=== PATIENT | female | born 1940 | race Caucasian/White ===

== ENCOUNTER → 2018-08-15 | Outpatient (CLI) | payer MEDICARE, OTHER ==
--- NOTE | 2018-08-15 16:24 | RADIOLOGY REPORT (SQ) ---
EXAM DESCRIPTION: VENOUS BILATERAL LOWER COMPLETED DATE/TIME: 08/15/2018 4:14 pm REASON FOR STUDY: EDEMA R60.9 EDEMA, UNSPECIFIED M79.604 PAIN IN RIGHT LEG COMPARISON: None. TECHNIQUE: Dynamic and static tony scale and color images acquired of both lower extremity venous sy stems. Selected spectral images acquired with additional compression and augmentation maneuvers. Imag es stored on PACS. LIMITATIONS: None. FINDINGS: RIGHT LEG COMMON FEMORAL AND FEMORAL: Normal phasicity, compression and augmentation. No visualized echogenic m aterial on tony scale. No defects on color images. POPLITEAL: Normal compression and augmentation. No visualized echogenic material on tony scale. No de fects on color images. CALF VESSELS: Normal compression and augmentation. No visualized echogenic material on tony scale. No defects on color image. GSV AND SSV: Normal compression. No visualized echogenic material on tony scale. No defects on color images. ANY DEEP VENOUS INSUFFICIENCY: No reflux on Valsalva ANY EVIDENCE OF POPLITEAL CYST: No. OTHER: No other significant finding. LEFT LEG COMMON FEMORAL AND FEMORAL: Normal phasicity, compression and augmentation. No visualized echogenic m aterial on tony scale. No defects on color images. POPLITEAL: Normal compression and augmentation. No visualized echogenic material on tony scale. No de fects on color images. CALF VESSELS: Normal compression and augmentation. No visualized echogenic material on tony scale. No defects on color images. GSV AND SSV: Normal compression. No visualized echogenic material on tony scale. No defects on color images. ANY DEEP VENOUS INSUFFICIENCY: No reflux on Valsalva. ANY EVIDENCE POPLITEAL CYST: No. OTHER: No other significant finding. IMPRESSION: NO EVIDENCE DVT OR SVT IN EITHER LEG. TECHNICAL DOCUMENTATION: JOB ID: [id number] [employer]- All Rights Reserved Reading location - IP/workstation name: [id number]
== END ==
LOC: SP 15:46
PROVIDERS: ATTEND Internal Medicine
DX: R60.9 Edema, unspecified (principal); M79.604 Pain in right leg
CPT/HCPCS: 93970